=== PATIENT | female | born 1990 | race Caucasian/White ===

== ENCOUNTER 2017-06-01 11:28 | Inpatient (IN) | payer MEDICAID ==
[~2017-06-01] VITALS: Ht 170.2 cm; Wt 107.8 kg
[~2017-06-01 11:28] MED LIST: PREN1TAB49
[2017-06-01 11:38] VITALS: BP 117/67; PULSE 75; RESP 18; Ht 170.2 cm; Wt 107.8 kg
--- NOTE | 2017-06-01 12:22 | RADRPT ---
PROCEDURE: Obstetrical ultrasound for biophysical profile CLINICAL INDICATION: Biophysical profile. . TECHNIQUE: Obstetrical ultrasound of the uterus for biophysical profile. Transabdominal views are obtained. COMPARISON: 01/14/2017 FINDINGS: Single intrauterine gestation. Presentation: Cephalic. Placenta: Anterior. No evidence of placental abruption. No evidence of placenta previa. breathing movement = 2/2 tone = 2/2 motion = 2/2 LEILA = 2/2 LEILA = 7.5 cm heart rate: 138 beats per minute IMPRESSION: Single intrauterine gestation. Biophysical profile 01/15 RPTAT: AADD .Rhett Smith MD, MD Date Time Electronically viewed and signed by .Rhett Smith MD, on 06/01/2017 12:22 .B/
[2017-06-01] MEDS ORDERED: OXYTOCIN 30 UNITS/LR 500 ML IV SCH ×2 (13:30→15:30)
[2017-06-01] MEDS ORDERED: MISOPROSTOL 200 MCG TAB PR PRN (13:30)
[2017-06-01] MEDS ORDERED: BUTORPHANOL 2 MG INJ IV PRN ×2 (13:30)
[2017-06-01] MEDS ORDERED: CARBOPROST 250 MCG INJ IM PRN (13:30)
[2017-06-01] MEDS ORDERED: LIDOCAINE 1% (MPF) 30 ML INJ INJ PRN (13:30)
[2017-06-01] MEDS ORDERED: METHYLERGONOVINE 0.2 MG INJ IM PRN (13:30)
[2017-06-01] MEDS ORDERED: OXYTOCIN 30 UNITS/LR 500 ML IV PRN (13:30)
[2017-06-01] MEDS: LACTATED RINGER'S 1,000 ML IV SCH ×2 (14:17→19:49)
[2017-06-01 14:20] LABS: BASOPHILS % 0.4 % (0.0-2.0); EOSINOPHILS # 0.3 10^3/ul (0.0-0.5); EOSINOPHILS % 2.9 % (0.0-7.0); HEMATOCRIT 30.9 % (37.0-47.0); HEMOGLOBIN 10.4 g/dl (12.0-16.0); LYMPHOCYTES # 1.5 10^3/ul (0.8-2.9); LYMPHOCYTES % 18.1 % (15.0-51.0); MEAN CORPUSCULAR HEMOGLOBIN 26.9 pg (29.0-33.0); MEAN CORPUSCULAR HGB CONC 33.7 g/dl (32.0-37.0); MEAN CORPUSCULAR VOLUME 79.8 fl (82.0-101.0); MEAN PLATELET VOLUME 10.3 fl (7.4-10.4); MONOCYTE # 0.5 10^3/ul (0.3-0.9); MONOCYTES % 5.4 % (0.0-11.0); NEUTROPHIL # 6.2 10^3/ul (1.6-7.5); NEUTROPHILS % 72.5 % (39.0-77.0); PLATELET COUNT 208 10^3/UL (140-415); RED BLOOD COUNT 3.87 10^6/ul (4.20-5.40); RED CELL DISTRIBUTION WIDTH 14.8 % (11.5-14.5); WHITE BLOOD COUNT 8.5 10^3/ul (4.8-10.8)
[2017-06-01 14:55] LABS: INR 0.97
[2017-06-01 14:56] LABS: PARTIAL THROMBOPLASTIN TIME 29.3 Sec (25.0-35.0)
--- NOTE | 2017-06-01 16:07 | HP ---
Date/Time of Note Date/Time of Note DATE: 06/01/17 TIME: 16:04 OB - History Hx of Present Free Text/Dictation Admitted for augmentation of labor because of a slightly decreased amniotic fluid Estimated Due Date: May 31, 2017 : 3 Para: 1 Spontaneous : 1 Care: Good Care Ultrasounds: Normal mid trimester US Obstetrical Complications: None Past Family/Social History * Past Medical, Surgical, Family and Obstetric Histories reviewed from chart. Blood Type: O+ Rubella: immune RPR/VDRL: Negative GBS Status: Negative HBsAG: Negative OB Admission Exam Vital Signs Vital Signs Vital Signs Date Time Temp Pulse Resp B/P Pulse Ox O2 Delivery O2 Flow Rate FiO2 06/01/17 11:38 97.8 75 18 117/67 Physical Exam HEENT: WNL Heart: Rhythm Normal Lungs: Clear, Equal Abdomen: WNL Extremities: Normal Reflexes: Normal Cervical Dilatation: 3cm Effacement: 50% Station: -3 Membranes: Intact Heart Rate: 140's Accelerations: Accelerations Present Decelerations: No Decelerations Varibility: Marked Contractions on Admission: >10 Minutes Apart Last 72 hours Lab Results CBC & BMP 06/01/17 14:00 OB Assessment/Plan Other Assessment: Postterm Other plan: Admitted for elective augmentation of labor DUSTIN KRAUSE MD Jun 01, 2017 16:07
[2017-06-01 20:47] LABS: BARBITURATES Negative (NEGATIVE); BENZODIAZEPINES Negative (NEGATIVE); CANNABINOIDS Negative (NEGATIVE); COCAINE Negative (NEGATIVE); OPIATES Negative (NEGATIVE)
[2017-06-02] MEDS: LACTATED RINGER'S 1,000 ML IV SCH ×2 (04:20→11:15)
[2017-06-02] MEDS ORDERED: FENTAnyl 2MCG/ML-ROPIV 0.2% 100 ML ONE (15:34)
[2017-06-02] MEDS: OXYTOCIN 30 UNITS/LR 500 ML IV SCH ×3 (16:14→16:47)
[2017-06-02] MEDS ORDERED: NALOXONE (0.4 MG/ML) INJ IV PRN (16:30)
[2017-06-02] MEDS ORDERED: FENTAnyl 2MCG/ML-ROPIV 0.2% 100 ML BAG EPI SCH (16:30)
--- NOTE | 2017-06-02 16:46 | LDN ---
Date/Time of Note Date/Time of Note DATE: 06/02/17 TIME: 16:43 Delivery Summary Normal spontaneous vaginal delivery of male infant over intact perineum Weeks of Gestation 40+ Placenta Delivered: Spontaneously, Intact & Complete Meconium: none Episiotomy: No Perineal laceration: 1 Laceration repair: 2 times vestibular laceration on inner side of the right and left labia minora were reapproximated using running sutures of 3-0 chromic on SH needle and first-degree perineal laceration was closed in layers using 3-0 chromic on an SH needle Anesthesia type: Epidural Estimated blood loss: 400 Sponge & Needle done & correct: Yes All needle counts correct: Yes Any foreign bodies felt in the: No Problems: Infant Delivery Information Sex Sex: male Apgars 1 Minute: 9 5 Minute: 9 Suctioning Nose & mouth suctioned at yeimi: Yes Delee suction performed: No Umbilical Cord Umbilical cord with: 3 Vessels Cord presentations: no nuchal cord Cord Blood was obtained: Yes Mother & Baby Disposition Disposition Small episode of hemorrhage was quickly taken care of by administration of IV Pitocin and Hemabate that was administered IM and also Cytotec which was inserted rectally the amount of the Cytotec was 800 mg Mom & Baby to Maternity; Good: Yes (Mother and baby were recovering in good condition) Mom transferred to: Other (Maternity) Baby to NICU: No DUSTIN KRAUSE MD Jun 02, 2017 16:46
[2017-06-02] MEDS ORDERED: MISOPROSTOL 200 MCG TAB PR PRN (17:30)
[2017-06-02] MEDS ORDERED: WITCH HAZEL/GLYCERIN PAD PR PRN (17:30)
[2017-06-02] MEDS ORDERED: METHYLERGONOVINE 0.2 MG INJ IM PRN (17:30)
[2017-06-02] MEDS ORDERED: OXYTOCIN 30 UNITS/LR 500 ML IV PRN (17:30)
[2017-06-02] MEDS ORDERED: CARBOPROST 250 MCG INJ IM PRN (17:30)
[2017-06-02] MEDS ORDERED: HYDROCODONE/APAP (5/325) TAB PO PRN ×2 (17:30)
[2017-06-02] MEDS ORDERED: DIBUCAINE 1% 30 GM OINT PR PRN (17:30)
[2017-06-02] MEDS ORDERED: BENZOCAINE 20% 56 ML SPRAY TOP PRN (17:30)
[2017-06-02] MEDS ORDERED: LANOLIN 7 GM TUBE TOP PRN (17:30)
[2017-06-02] MEDS ORDERED: ZOLPIDEM 5 MG TAB PO PRN (17:30)
[2017-06-02 17:45] VITALS: BP 115/62; PULSE 97; RESP 19
[2017-06-02 18:15] VITALS: BP 109/59; PULSE 70; RESP 20
[2017-06-02] MEDS: IBUPROFEN 600 MG TAB PO SCH ×2 (18:16→23:33)
[2017-06-02] MEDS: CEPHALEXIN 500 MG CAP PO SCH ×2 (18:16→23:33)
[2017-06-02 19:40] VITALS: BP 104/63; PULSE 75; RESP 19
[2017-06-02] MEDS: LACTATED RINGER'S 1,000 ML IV* SCH (20:56)
[2017-06-02] MEDS: SENNA/DOCUSATE NA (8.6MG/50MG) TAB PO SCH (21:43)
[2017-06-02] MEDS: MAGNESIUM HYDROXIDE 30ML CUP PO SCH (21:43)
[2017-06-03] VITALS: BP 110/69; PULSE 79; RESP 19
[2017-06-03] MEDS: LACTATED RINGER'S 1,000 ML IV* SCH ×3 (01:27→20:04)
[2017-06-03 04:00] VITALS: BP 101/54; PULSE 77; RESP 19
[2017-06-03] MEDS: IBUPROFEN 600 MG TAB PO SCH ×4 (05:35→23:37)
[2017-06-03] MEDS: CEPHALEXIN 500 MG CAP PO SCH ×4 (05:35→23:37)
[2017-06-03 07:50] VITALS: BP 114/76; PULSE 73; RESP 18
[2017-06-03] MEDS: MAGNESIUM HYDROXIDE 30ML CUP PO SCH ×2 (09:00→21:00)
[2017-06-03] MEDS: SENNA/DOCUSATE NA (8.6MG/50MG) TAB PO SCH ×2 (09:00→21:00)
[2017-06-03 09:03] LABS: BASOPHILS % 0.4 % (0.0-2.0); EOSINOPHILS # 0.1 10^3/ul (0.0-0.5); EOSINOPHILS % 1.4 % (0.0-7.0); HEMATOCRIT 28.5 % (37.0-47.0); HEMOGLOBIN 9.2 g/dl (12.0-16.0); LYMPHOCYTES # 1.7 10^3/ul (0.8-2.9); LYMPHOCYTES % 17.7 % (15.0-51.0); MEAN CORPUSCULAR HEMOGLOBIN 26.5 pg (29.0-33.0); MEAN CORPUSCULAR HGB CONC 32.3 g/dl (32.0-37.0); MEAN CORPUSCULAR VOLUME 82.1 fl (82.0-101.0); MEAN PLATELET VOLUME 10.5 fl (7.4-10.4); MONOCYTE # 0.5 10^3/ul (0.3-0.9); MONOCYTES % 5.1 % (0.0-11.0); NEUTROPHIL # 7.1 10^3/ul (1.6-7.5); PLATELET COUNT 201 10^3/UL (140-415); RED BLOOD COUNT 3.47 10^6/ul (4.20-5.40); RED CELL DISTRIBUTION WIDTH 14.6 % (11.5-14.5); WHITE BLOOD COUNT 9.5 10^3/ul (4.8-10.8)
[2017-06-03 16:00] VITALS: BP 107/66; PULSE 78; RESP 20
[2017-06-03 20:00] VITALS: BP 108/67; PULSE 84; RESP 19
--- NOTE | 2017-06-03 20:20 | PN ---
Date/Time of Note Date/Time of Note DATE: 06/03/17 TIME: 20:10 OB Subjective Subjective Subjective May Post day 1 she had a temperature of 99 but now is afebrile Ambulatory Chest Clear Breasts are soft , Nipples are intact Abdomen is soft Fundus is firm Moderate amount of lochia No evidence of infection No calf tenderness No ankle edema She is still on zocin Laboratory Tests Test 06/03/17 08:29 White Blood Count 9.510^3/ul Red Blood Count 3.4710^6/ul Hemoglobin 9.2g/dl Hematocrit 28.5% Mean Corpuscular Volume 82.1fl Mean Corpuscular Hemoglobin 26.5pg Mean Corpuscular Hemoglobin Concent 32.3g/dl Red Cell Distribution Width 14.6% Platelet Count 04778^3/UL Mean Platelet Volume 10.5fl Neutrophils % 75.0% Lymphocytes % 17.7% Monocytes % 5.1% Eosinophils % 1.4% Basophils % 0.4% Nucleated Red Blood Cells % 0.0/100WBC Neutrophils # 7.110^3/ul Lymphocytes # 1.710^3/ul Monocytes # 0.510^3/ul Eosinophils # 0.110^3/ul Basophils # 0.010^3/ul Nucleated Red Blood Cells # 0.010^3/ul Current Medications Medications (Trade) Dose Ordered Sig/Ambrose Route PRN Reason Start Time Stop Time Status Last Admin Dose Admin Lactated Ringer's (Lr) 1,000 ml @ 125 mls/hr Q8H IV 06/01/17 13:10 06/02/17 17:29 DC 06/02/17 11:15 Butorphanol Tartrate (Stadol) 1 mg Q2H PRN IV PAIN 06/01/17 13:30 06/02/17 17:29 DC Butorphanol Tartrate (Stadol) 2 mg Q2H PRN IV PAIN 06/01/17 13:30 06/02/17 17:29 DC Lidocaine 30 ml 30 ml ONCE PRN INJ EPISIOTOMY/TEARING 06/01/17 13:30 06/02/17 17:29 DC Oxytocin/Lactated Ringer's 500 ml @ 500 mls/hr ONCE POST IV 06/01/17 13:30 06/02/17 17:29 DC 06/02/17 09:35 Oxytocin/Lactated Ringer's 500 ml @ 125 mls/hr POST IV 06/01/17 13:30 06/02/17 17:29 DC 06/02/17 16:47 Oxytocin/Lactated Ringer's 500 ml @ 0 mls/hr ONCE PRN IV For Hemorrhage Management 06/01/17 13:30 06/02/17 17:29 DC Methylergonovine Maleate (Methergine) 0.2 mg ONCE PRN IM VAGINAL BLEEDING 06/01/17 13:30 06/02/17 17:29 DC Carboprost Tromethamine (Hemabate) 250 mcg ONCE PRN IM VAGINAL BLEEDING 06/01/17 13:30 06/02/17 17:29 DC 06/02/17 16:30 Misoprostol 1000 mcg 1,000 mcg ONCE PRN PA VAGINAL BLEEDING 06/01/17 13:30 06/02/17 17:29 DC 06/02/17 16:32 Oxytocin/Lactated Ringer's 500 ml @ 0 mls/hr Q0M IV 06/01/17 15:30 06/02/17 17:29 DC 06/01/17 15:49 Fentanyl/ Ropivacaine 100 ml @ ud STK-MED ONCE .ROUTE 06/02/17 15:34 06/02/17 15:35 DC Naloxone HCl (Narcan) 0.1 mg Q2M PRN IV FOR RESP RATE 8 OR LESS 06/02/17 16:30 06/02/17 17:29 DC Fentanyl/ Ropivacaine 100 ml 100 ml EPIDURAL INFUSION EPI 06/02/17 16:30 06/02/17 17:29 DC Lactated Ringer's (Lr) 1,000 ml @ 125 mls/hr Q8H IV* 06/02/17 17:27 06/02/17 20:56 Ibuprofen (Motrin) 600 mg Q6 PO 06/02/17 18:00 06/03/17 18:15 Acetaminophen/ Hydrocodone Bitart ([place] (5/325)) 1 tab Q4H PRN PO PAIN LEVEL 1-5 06/02/17 17:30 Acetaminophen/ Hydrocodone Bitart ([place] (5/325)) 2 tab Q4H PRN PO PAIN LEVEL 6-10 06/02/17 17:30 Zolpidem Tartrate (Ambien) 5 mg QHS PRN PO INSOMNIA 06/02/17 17:30 Senna/Docusate Sodium (Senokot-S) 1 tab BID PO 06/02/17 21:00 06/02/17 21:43 Magnesium Hydroxide (Milk Of Mag) 30 ml Q12 PO 06/02/17 21:00 06/02/17 21:43 Witch Jessica/ Glycerin (Tucks Pads) 1 pad BEDSIDE MEDICATION PRN PA HEMORRHOID/EPISIOTMY PAIN 06/02/17 17:30 06/02/17 18:16 Benzocaine (Dermoplast Riddle) 1 spray BEDSIDE MEDICATION PRN TOP HEMORRHOID/EPISIOTMY PAIN 06/02/17 17:30 06/02/17 18:16 Dibucaine (Nupercainal) 1 applic BEDSIDE MEDICATION PRN PA HEMORRHOID/EPISIOTMY PAIN 06/02/17 17:30 Lanolin (Tym-H-Ukttha) 1 applic BEDSIDE MEDICATION PRN TOP BEDSIDE FOR JOSH TO NIPPLES 06/02/17 17:30 06/02/17 18:16 Measles/Mumps/ Rubella Vaccine Live (Mmr Ii Vaccine) 0.5 ml ONCE ONCE SC* 06/04/17 09:00 06/04/17 09:01 Diphtheria/ Tetanus/Acell Pertussis (Adacel) 0.5 ml ONCE ONCE IM* 06/04/17 09:00 06/04/17 09:01 Varicella Virus Vaccine Live 1350 unit 1,350 unit ONCE ONCE SC* 06/04/17 09:00 06/04/17 09:01 Oxytocin/Lactated Ringer's 500 ml @ 0 mls/hr ONCE PRN IV For Hemorrhage Management 06/02/17 17:30 Methylergonovine Maleate (Methergine) 0.2 mg ONCE PRN IM VAGINAL BLEEDING 06/02/17 17:30 Carboprost Tromethamine (Hemabate) 250 mcg ONCE PRN IM VAGINAL BLEEDING 06/02/17 17:30 Misoprostol (Cytotec) 1,000 mcg ONCE PRN PA VAGINAL BLEEDING 06/02/17 17:30 Cephalexin (Keflex) 500 mg Q6 PO 06/02/17 18:00 06/03/17 18:15 Will have another chest XR. New born is doing well, Breast feeding ELIZABETH BRISENO MD Jun 03, 2017 20:20
[2017-06-04] MEDS: LACTATED RINGER'S 1,000 ML IV* SCH (01:27)
[2017-06-04 03:50] VITALS: BP 106/71; PULSE 79; RESP 19
[2017-06-04] MEDS: CEPHALEXIN 500 MG CAP PO SCH ×2 (05:36→11:26)
[2017-06-04] MEDS: IBUPROFEN 600 MG TAB PO SCH ×2 (05:36→11:26)
[2017-06-04 07:40] VITALS: BP 111/73; PULSE 83; RESP 16
[2017-06-04] MEDS: SENNA/DOCUSATE NA (8.6MG/50MG) TAB PO SCH (08:48)
[2017-06-04] MEDS: MAGNESIUM HYDROXIDE 30ML CUP PO SCH (08:48)
[2017-06-04] MEDS ORDERED: MEASLES,MUMPS,RUBELLA VACCINE INJ SC* ONE (09:00)
[2017-06-04] MEDS ORDERED: DIPHTH/TET/ACEL PERTUSS (ADULT) 0.5 ML VIAL IM* ONE (09:00)
[2017-06-04] MEDS ORDERED: VARICELLA VACCINE LIVE/PF 1,350 UNIT/0.5 ML ML SC* ONE (09:00)
--- NOTE | 2017-06-04 11:21 | DS ---
Date/Time of Note Date/Time of Note home next day DATE: 06/04/17 TIME: 11:20 Obstetrical Discharge Record Final Diagnosis Final Diagnosis: Term delivered Other Final Diagnosis S/P vaginal delivery Vaginal Delivery Obstetrical Delivery: Spontaneous, Laceration, Repaired Complications Augmentation: Yes Condition on Discharge Physical Assessment Last Vitals: see nurses notes Voiding: Yes Bowel Movement: Yes Breast: Soft, non-tender, Filling Fundus: Firm Abdomen and Incision: soft BS + fundus is firm at U Episiotomy: perineum: healing Calf Tenderness: No Patient Condition: Good DUSTIN KRAUSE MD Jun 04, 2017 11:21
--- NOTE | 2017-06-04 11:24 | PD.PPDC ---
[employer] Discharge Instruction Provider Information Physician Information 26 yy/o female had vaginal delivery Diagnosis Final Diagnosis: S/P vaginal ldeivery Condition Patient Condition: Good Diet Diet: Resume Regular Diet Activity/Restrictions Activity: Normal Activity May Shower Restrictions: Nothing in the Vagina Return to Work or School: Jul 22, 2017 Follow-up Follow-up with Physician: 4, Week/Weeks (in clinic) Return to clinic for OB Instructions: Breast Tenderness Depression Comment: pelvic rest X 6 weeks DUSTIN KRAUSE MD Jun 04, 2017 11:24
[2017-06-04] MEDS ORDERED: IBUP-1542 PO (11:25)
== END 2017-06-04 12:15 | disposition home or self-care (01) | DRG 774 ==
LOC: OBT 11:28 → L-D 11:29 → OBT 12:25 → L-D 12:25 → PP1 06-02 17:36
PROVIDERS: ADMIT Obstetrics & Gynecology; ATTEND Obstetrics & Gynecology
PROC: 10E0XZZ Delivery of Products of Conception, External Approach (ICD-10-PCS; principal; 2017-06-02)
PROC: 0HQ9XZZ Repair Perineum Skin, External Approach (ICD-10-PCS; 2017-06-02)
DX: O70.0 First degree perineal laceration during delivery (principal); O72.2 Delayed and secondary postpartum hemorrhage; Z37.0 Single live birth; Z3A.40 40 weeks gestation of pregnancy
CPT/HCPCS: 62319; 76818; 80307; 85025; 85610; 85730; 86592; 86900; 86901; 87340; 90715; 90716; G0463; J2590; J3010; J7120